=== PATIENT | male | born 1945 | race Hispanic/Latino ===

== ENCOUNTER 2022-12-17 23:23 | Emergency (ER) | payer OTHER ==
[~2022-12-17] VITALS: Ht 172.7 cm; Wt 113.4 kg
[2022-12-17 23:29] VITALS: O2SAT 98
[2022-12-17 23:30] VITALS: BP 119/69; PULSE 92; RESP 18
[2022-12-18] LABS: HEMATOCRIT 31.7 % (42-54); MEAN CORPUSCULAR HEMOGLOBIN 26.4 pg (27.0-33.0); MEAN CORPUSCULAR HGB CONC 32.8 g/dL (32.0-36.0); MEAN CORPUSCULAR VOLUME 80.5 fL (79-99); PLATELET COUNT (AUTO) 286 K/uL (130-400); RED BLOOD CELL COUNT(AUTO) 3.94 MIL/uL (4.50-6.20); RED CELL DISTRIBUTION WIDTH 15.7 % (11.0-15.5); WHITE BLOOD COUNT (AUTO) 18.6 K/uL (4.8-10.8)
[2022-12-18 00:04] LABS: BASOPHILS # (AUTO) 0.07 K/uL (0.00-0.20); BASOPHILS % (AUTO) 0.4 % (0.0-5.0); EOSINOPHILS # (AUTO) 0.08 K/uL (0.00-0.70); EOSINOPHILS % (AUTO) 0.4 % (0.0-8.0); IMMATURE GRANULOCYTE ABSOLUTE 0.13 K/uL (0-1); LYMPHOCYTES % (AUTO) 5.6 % (21.0-51.0); MONOCYTES % (AUTO) 5.6 % (3.0-13.0); NEUTROPHILS # (AUTO) 16.1 K/uL (1.8-7.7); NEUTROPHILS % (AUTO) 87.3 % (40.0-77.0)
[2022-12-18 00:07] LABS: APPEARANCE,URINE CLOUDY (CLEAR); BILIRUBIN,URINE NEGATIVE (NEGATIVE); GLUCOSE, URINE (UA) NEGATIVE (NEGATIVE); KETONES,URINE NEGATIVE (NEGATIVE); LEUKOCYTE ESTERASE ,URINE 500 Leu/uL (NEGATIVE); MUCUS,URINE RARE LPF (None Seen); NITRATE,URINE NEGATIVE (NEGATIVE); OCCULT BLOOD,URINE LARGE (NEGATIVE); PROTEIN,URINE 30 mg/dL (NEGATIVE); RBC,URINE TNTC /HPF (0-1); UROBILINOGEN,URINE 0.2 mg/dL (0.2-1.0); WBC,URINE 26-50 /HPF (0-1)
[2022-12-18 00:08] LABS: COLOR,URINE RED (YELLOW); TRANSITIONAL EPI CELLS,URINE Few /HPF (None Seen)
[2022-12-18 00:13] LABS: CREATININE 1.8 mg/dL (0.5-1.5); POTASSIUM 3.9 mmol/L (3.5-5.1)
[2022-12-18 00:15] LABS: INR 1.05 (0.85-1.15); PROTHROMBIN TIME 12.1 SEC (9.6-11.6)
[2022-12-18 00:16] LABS: PARTIAL THROMBOPLASTIN TIME 31.3 SEC (26.3-35.5)
[2022-12-18 00:18] LABS: ALBUMIN 3.3 g/dL (3.5-5.0); BILIRUBIN,TOTAL 0.5 mg/dL (0.2-1.0); TOTAL PROTEIN, SERUM 7.4 g/dL (6.0-8.3)
[2022-12-18] MEDS ORDERED: CEFTRIAXONE 1G VIAL IVPB ONE (00:30)
[2022-12-18] MEDS ORDERED: CEFU500T67 PO (01:40)
[2022-12-18] MEDS ORDERED: TAMS-1 PO (01:40)
== END 2022-12-18 01:54 | disposition home or self-care (01) ==
LOC: EDH 23:23
DX: K80.20 Calculus of gallbladder without cholecystitis without obstruction (principal); R31.9 Hematuria, unspecified; I48.91 Unspecified atrial fibrillation; E11.22 Type 2 diabetes mellitus with diabetic chronic kidney disease; N18.30 Chronic kidney disease, stage 3 unspecified; I50.9 Heart failure, unspecified; F03.90 Unspecified dementia, unspecified severity, without behavioral disturbance, psychotic disturbance, mood disturbance, and anxiety; F10.20 Alcohol dependence, uncomplicated
CPT/HCPCS: 99284; 80053; 85025; 85610; 85730; 87077; 87088; 87186; 81001; 36415; 96365; 74176; J0696

== ENCOUNTER 2023-04-17 23:40 | Emergency (ER) | payer OTHER ==
[~2023-04-17] VITALS: Ht 160 cm; Wt 108.9 kg
[~2023-04-17 23:40] MED LIST: ASPI-1197 PO; DONE5TAB33 PO; GLIP5TAB15 PO; LOSA25TA41 PO; LOVA40TA2 PO; METF-444 PO; METO2.5T2 PO; METO25TA6 PO; PANT40TA54 PO; SERT-439 PO; SPIR50TA5 PO; SUCR1TAB2 PO; TAMS-1 PO
[2023-04-18 00:37] VITALS: BP 135/68; PULSE 80; RESP 18; O2SAT 98
[2023-04-18] MEDS ORDERED: IBUP-1493 PO (02:14)
== END 2023-04-18 02:37 | disposition home or self-care (01) ==
LOC: EDH 23:40
DX: M25.562 Pain in left knee (principal); E11.9 Type 2 diabetes mellitus without complications; E78.00 Pure hypercholesterolemia, unspecified; F03.90 Unspecified dementia, unspecified severity, without behavioral disturbance, psychotic disturbance, mood disturbance, and anxiety; I11.0 Hypertensive heart disease with heart failure; I48.91 Unspecified atrial fibrillation; I50.9 Heart failure, unspecified; Z79.82 Long term (current) use of aspirin; Z79.84 Long term (current) use of oral hypoglycemic drugs; Z79.899 Other long term (current) drug therapy; Z90.49 Acquired absence of other specified parts of digestive tract
CPT/HCPCS: 73560; 73564